=== PATIENT | female | born 1985 | race Caucasian/White ===

== ENCOUNTER 2025-08-04 15:26 | Outpatient (CLI) | payer BC, SELFPAY ==
--- NOTE | 2025-08-04 16:15 | CRLHL7_ITS ---
For Patients: As a result of the Century Cures Act, medical imaging exams and procedure reports are released immediately into your electronic medical record. You may view this report before your referring provider. If you have questions, please contact your health care provider. INDICATION: confirmation of loss, imaging at [facility] 08/02/25. LEATHA given was 01/22/26. COMPARISON: None TECHNIQUE: First trimester obstetrical ultrasound, transabdominal approach, utilizing grayscale and color Doppler as needed. FINDINGS: Sonographic imaging demonstrates a single intrauterine gestation. The crown-rump length measures 5.8 centimeters consistent with a 12 week and 2 day gestation. There are no heart tones. Nuchal edema is present. The placenta is posterior. Likely small subchorionic hemorrhage measuring 1.4 x 0.7 x 2.3 centimeters. The bilateral ovaries are not visualized. No pelvic free fluid. IMPRESSION: Intrauterine gestation with crown-rump length measuring 5.8 centimeters consistent with a 12 week 2 day gestation with no heart tones. Findings are consistent with early loss. Dictated by Pablito Michelle MD @ 08/04/2025 4:35:35 PM (Electronically Signed)
== END 2025-08-04 15:27 | disposition home or self-care (01) ==
LOC: US 15:26
PROVIDERS: Visit Provider Obstetrics & Gynecology
DX: O36.4XX0 Maternal care for intrauterine death, not applicable or unspecified (principal); Z3A.12 12 weeks gestation of pregnancy
CPT/HCPCS: 76815

== ENCOUNTER 2025-08-06 12:28 | Day surgery (SDC) | payer BC, SELFPAY ==
[2025-08-06 12:42] VITALS: BP 114/71; PULSE 88; RESP 16; TEMP 37.7; O2SAT 100; BMI 31.9
--- NOTE | 2025-08-06 12:42 | P.ANES_ITS ---
Anesthesia Charges Start Date/Time Anesthesia Start Date: 08/06/25 Anesthesia Start Time: 11:51 Stop Date/Time Anesthesia Stop Date: 08/06/25 Anesthesia Stop Time: 12:41 Coding CPT Codes CPT Codes: ANESTH HYSTEROSCOPE/GRAPH - 48674 ([id number]) P1 - NORMAL HEALTHY PATIENT, QK - HOUSE FURNISHINGS SUPERVISOR 2-4 CNCRNT ANES PROC
--- NOTE | 2025-08-06 12:42 | W.ANESCHARGE ---
Anesthesia Charges Start Date/Time Anesthesia Start Date: 08/06/25 Anesthesia Start Time: 11:51 Stop Date/Time Anesthesia Stop Date: 08/06/25 Anesthesia Stop Time: 12:41 Coding CPT Codes CPT Codes: ANESTH HYSTEROSCOPE/GRAPH - [id number] ([id number]) P1 - NORMAL HEALTHY PATIENT, QK - STRATEGIES ANALYST 2-4 CNCRNT ANES PROC
[2025-08-06] MEDS: LACTATED RINGERS 1000 ML 1,000 ML 100 ML IV (13:00)
[2025-08-06] MEDS: SODIUM CHLORIDE 0.9 % (FLUSH) 10 ML SYRINGE IVF (13:00)
[2025-08-06] MEDS: DOXYCYCLINE HYCLATE 200 MG in 0.9 % SODIUM CHLORIDE 250 ml 250 ML 250 MG IVPB (13:00)
[2025-08-06 13:22] LABS: Hemoglobin* 12.6 gm/dL (12.0-16.0)
[2025-08-06] MEDS: LIDOCAINE 1% MDV 20 ML INJECTION (14:21)
[2025-08-06 14:50] VITALS: BP 95/62; PULSE 84; RESP 14; TEMP 36.9; O2SAT 97
--- NOTE | 2025-08-06 14:51 | W.PM.GYNPROC ---
Procedure Note Date of procedure: 08/06/25 Will [facility] bill your pro fee for this procedure?: Yes Pre-op diagnosis: Missed at 12 weeks, 2 days by CRL Post-op diagnosis: Same Procedure: Suction uterine curettage under ultrasound guidance Anesthesia: MAC and local Complications: None Surgeon: Siomara Anna MD Estimated blood loss (mL): 50 IV fluids (mL): 600 Urine Output (mL): 50 Pathology: specimen obtained, sent to pathology (Products of conception) Condition: stable Disposition: same day Findings: 1. Upon pelvic exam under anesthesia, the cervix and vagina were normal in appearance. Uterus was mobile and anteverted, consistent in size with 12 weeks gestation. There were no palpable adnexal masses. 2. Upon ultrasound performed during procedure, the fetus was visibly removed using ultrasound guidance. Examination of products of conception was consistent with this impression. Ultrasound at and procedure revealed no heterogeneity or thickening of endometrial stripe. Procedure Description: Patient was taken to the operating with IV running. She had received a single IV dose of doxycycline in preoperative prophylaxis. She was placed in dorsal lithotomy position. Monitored anesthesia care was administered. She was prepped and draped in the usual sterile fashion. Exam under anesthesia was performed for the above-noted findings. Speculum was inserted. Cervix was grasped along its anterior lip with an Allis clamp. Paracervical block was performed with a total of 10 mL of 1% lidocaine. The cervix was serially dilated to 12 Nep[place]. A size 12 rigid suction cannula was then passed through the cervix to the uterine fundus. Suction was applied, and the suction cannula was withdrawn along the path of insertion. This was repeated several more times, with obvious return of products of conception. Thereafter, curettage was performed circumferentially with the suction curette, and a gritty texture was noted throughout. Minimal tissue was obtained with curettings. Procedure was deemed complete. The Allis clamp was removed from the anterior lip the cervix, and hemostasis was noted. The speculum was then removed from the vagina. The products of conception were floated in saline and head and limbs were identified. Patient tolerated procedure well and was taken recovery area in stable condition.
--- NOTE | 2025-08-06 14:53 | P.ANES_ITS ---
Anesthesia Charges Start Date/Time Anesthesia Start Date: 08/06/25 Anesthesia Start Time: 13:49 Stop Date/Time Anesthesia Stop Date: 08/06/25 Anesthesia Stop Time: 14:52 Coding CPT Codes CPT Codes: ANESTH INC/MISSED AB PROC - [id number] ([id number]) QK - SMALL ARMS ARTILLERY REPAIRER 2-4 CNCRNT ANES PROC, QX - TRUCKING CONTRACTOR SVC W/ MD MED DIRECTION, P2 - PATIENT W/MILD SYST DISEASE
--- NOTE | 2025-08-06 14:53 | W.ANESCHARGE ---
Anesthesia Charges Start Date/Time Anesthesia Start Date: 08/06/25 Anesthesia Start Time: 13:49 Stop Date/Time Anesthesia Stop Date: 08/06/25 Anesthesia Stop Time: 14:52 Coding CPT Codes CPT Codes: ANESTH INC/MISSED AB PROC - [id number] ([id number]) QK - ACCURACY EXPERT 2-4 CNCRNT ANES PROC, QX - DIE REPAIRER TRIMMER DIES SVC W/ MD MED DIRECTION, P2 - PATIENT W/MILD SYST DISEASE
--- NOTE | 2025-08-06 14:54 | P.ANES_ITS ---
Anesthesia Charges Start Date/Time Anesthesia Start Date: 08/06/25 Anesthesia Start Time: 13:49 Stop Date/Time Anesthesia Stop Date: 08/06/25 Anesthesia Stop Time: 14:52 Coding CPT Codes CPT Codes: ANESTH INC/MISSED AB PROC - [id number] ([id number]) P2 - PATIENT W/MILD SYST DISEASE, QK - DATA CONSULTANT 2-4 CNCRNT ANES PROC, QX - MACHINE MAINTENANCE SERVICER SVC W/ MD MED DIRECTION
--- NOTE | 2025-08-06 14:54 | W.ANESCHARGE ---
Anesthesia Charges Start Date/Time Anesthesia Start Date: 08/06/25 Anesthesia Start Time: 13:49 Stop Date/Time Anesthesia Stop Date: 08/06/25 Anesthesia Stop Time: 14:52 Coding CPT Codes CPT Codes: ANESTH INC/MISSED AB PROC - [id number] ([id number]) P2 - PATIENT W/MILD SYST DISEASE, QK - WASHER ASSEMBLER 2-4 CNCRNT ANES PROC, QX - HEALTH AND SAFETY CONSULTANT SVC W/ MD MED DIRECTION
[2025-08-06 15:00] VITALS: BP 111/76; PULSE 94; RESP 14; O2SAT 99
[2025-08-06 15:15] VITALS: BP 101/68; PULSE 84; RESP 14; O2SAT 98
[2025-08-06 15:30] VITALS: BP 96/63; PULSE 75; RESP 16; O2SAT 97
[2025-08-06 15:45] VITALS: BP 98/60; PULSE 84; RESP 16; TEMP 37.1; O2SAT 97
[2025-08-06] MEDS: ACETAMINOPHEN 500 MG TABLET 1000 MG PO (15:56)
== END 2025-08-06 16:08 | disposition home or self-care (01) ==
PROVIDERS: Obstetrics & Gynecology; Visit Provider Obstetrics & Gynecology
PROC: (CPT 59820; principal; 2025-08-06 13:45)
DX: O02.1 Missed abortion (principal)
CPT/HCPCS: 59820; 00952; 01965; 36415; 76998; 81025; 85018; 86850; 86900; 86901; J2003; A9270; J1885; J2250; J2405; J2704; J3490; J7050; J7120